=== PATIENT | female | born 1965 | race Caucasian/White ===

== ENCOUNTER → 2016-11-14 | Outpatient (CLI) | payer BC ==
--- NOTE | 2016-11-15 09:36 | MM ---
Reason for exam: screening (asymptomatic). Last mammogram was performed 1 year and 10 months ago. History: Patient is postmenopausal. Family history of breast cancer in mother at age 58. Took hormonal contraceptives for 12 years beginning at age 18. Physical Findings: A clinical breast exam by your physician is recommended on an annual basis and results should be correlated with mammographic findings. MG Screening Mammo w CAD Bilateral CC and MLO view(s) were taken. Prior study comparison: January 14, 2015, bilateral MG screening mammo w CAD. November 10, 2013, bilateral digital screening mammo w/CAD. There are scattered fibroglandular densities. There is no discrete abnormality. No significant changes when compared with prior studies. ASSESSMENT: Negative, BI-RAD 1 RECOMMENDATION: Routine screening mammogram of both breasts in 1 year.
== END | disposition home or self-care (01) ==
LOC: RADMAMWWP 07:51
PROVIDERS: ATTEND Family Medicine
DX: Z12.31 Encounter for screening mammogram for malignant neoplasm of breast (principal)

== ENCOUNTER → 2017-12-27 | Outpatient (CLI) | payer BC ==
--- NOTE | 2017-12-28 11:59 | MM ---
Reason for exam: screening (asymptomatic). Last mammogram was performed 1 year and 1 month ago. History: Patient is postmenopausal. Family history of breast cancer in mother at age 58. Took hormonal contraceptives for 12 years beginning at age 18. Physical Findings: A clinical breast exam by your physician is recommended on an annual basis and results should be correlated with mammographic findings. MG Screening Mammo w CAD Bilateral CC and MLO view(s) were taken. Prior study comparison: November 14, 2016, bilateral MG screening mammo w CAD. January 14, 2015, bilateral MG screening mammo w CAD. There are scattered fibroglandular densities. Finding: There are typically benign calcifications. There is a chronic nodularity in the left breast. No significant changes in finding since November 14, 2016 and January 14, 2015. ASSESSMENT: Benign, BI-RAD 2 RECOMMENDATION: Routine screening mammogram of both breasts in 1 year.
== END | disposition home or self-care (01) ==
LOC: RADMAMWWP 07:38
PROVIDERS: ATTEND Family Medicine
DX: Z12.31 Encounter for screening mammogram for malignant neoplasm of breast (principal)
CPT/HCPCS: 77067

== ENCOUNTER → 2018-10-03 | Outpatient (CLI) | payer BC ==
--- NOTE | 2018-10-03 08:47 | US ---
EXAMINATION TYPE: US abdomen complete DATE OF EXAM: 10/03/2018 COMPARISON: CT 2012 CLINICAL HISTORY: R31.9 Hematuria. Hematuria, pt states left flank pain EXAM MEASUREMENTS: Liver Length: 17.6 cm Gallbladder Wall: 0.2 cm CBD: 0.4 cm Spleen: 9.0 cm Right Kidney: 11.0 x 4.7 x 5.4 cm Left Kidney: 11.8 x 5.5 x 5.5 cm Pancreas: wnl, tail obscured by overlying bowel gas Liver: Upper limits of normal, otherwise appeared wnl Gallbladder: wnl Evidence for sonographic Daugherty's sign: No CBD: wnl Spleen: wnl Right Kidney: wnl, no evidence of hydro Left Kidney: wnl, no evidence of hydro or renal stone Upper IVC: wnl Abd Aorta: wnl No abnormality visualized to account for pt's symptoms The visualized liver is homogenous. The intrahepatic portion of the IVC and visualized abdominal aor ta are within normal limits. There is no evidence of shadowing mobile cholelithiasis. Common bile d uct is unremarkable. The visualized portions of the pancreas are homogenous portions of distal body and tail are obscured by overlying bowel gas on images saved. The spleen is unremarkable. Kidneys a re symmetric and free of hydronephrosis. No renal lesions are seen. IMPRESSION: No distinct renal stones or hydronephrosis is clearly seen. No suspicious acute finding i dentified on images saved.
--- NOTE | 2018-10-03 08:49 | US ---
EXAMINATION TYPE: US pelvic complete DATE OF EXAM: 10/03/2018 COMPARISON: CT 2012 CLINICAL HISTORY: R31.9 Hematuria. Hematuria, pt states hysterectomy in 2010 for prolapsed uterus TECHNIQUE: Transabdominal (TA). Transabdominal sonographic images of the pelvis were acquired. Date of LMP: 2010 1. Uterus: Surgically absent 2. Endometrium: Surgically absent 3. Right Ovary: Obscured by overlying bowel gas 4. Left Ovary: Obscured by overlying bowel gas 5. Bilateral Adnexa: wnl 6. Posterior cul-de-sac: wnl No pelvic abnormality visualized, ovaries obscured by overlying bowel. Bladder images also obtained , bladder appears wnl, bilateral jets visualized. IMPRESSION: Posthysterectomy changes without suspicious adnexal mass.
== END | disposition home or self-care (01) ==
LOC: RADUSWWP 08:03
PROVIDERS: ATTEND Family Medicine
DX: R31.9 Hematuria, unspecified (principal); Z90.710 Acquired absence of both cervix and uterus
CPT/HCPCS: 76700; 76856

== ENCOUNTER → 2018-10-25 | Outpatient (CLI) | payer BC ==
--- NOTE | 2018-10-27 16:05 | CT ---
EXAMINATION TYPE: CT abdomen pelvis wo con DATE OF EXAM: 10/25/2018 COMPARISON: Ultrasound 10/03/2018 HISTORY: 53-year-old female LEFT SIDE abdominal PAIN CT DLP: 770.8 mGycm. Automated exposure control for dose reduction was used. TECHNIQUE: Contiguous axial scanning of the abdomen and pelvis without IV contrast. Coronal and sagit hyacinth reconstructions performed. FINDINGS: Heart normal size without pericardial effusion. Some strandy atelectasis inferior lingula. Lung bases otherwise clear without pleural effusion. Liver enlarged measuring 20.8 cm. Noncontrast appearance of the gallbladder, adrenal glands, kidneys, spleen, and pancreas show no rosenda s abnormal mobility. No nephrolithiasis or hydronephrosis. Prominent ingested debris within the stomach. No dilated small bowel, free fluid, or free air. No mesenteric or retroperitoneal lymphadenopathy. Normal appendix. Mild overall stool burden. No pericolonic inflammatory change. Bladder partially distended. Uterus appears surgically absent. What appear to be the ovaries are visu alized. No abnormal fluid collection in the pelvis. Some mildly prominent external iliac chain lymph nodes measure up to 9 mm and are probably reactive/post inflammatory. Numerous pelvic phlebolith is r edemonstrated. Bones: Mild degenerative spurring at the hips. Facet arthropathy lower lumbar spine. Trace grade 1 an terolisthesis L4-L5. IMPRESSION: 1. No nephrolithiasis or hydronephrosis. No acute inflammatory process identified. 2. Hepatomegaly (20.8 cm).
== END ==
LOC: RADCTMAIN 16:12
PROVIDERS: ATTEND Family Medicine
DX: R16.0 Hepatomegaly, not elsewhere classified (principal)
CPT/HCPCS: 74176

== ENCOUNTER → 2019-01-07 | Outpatient (CLI) | payer BC ==
--- NOTE | 2019-01-08 07:12 | CT ---
EXAMINATION TYPE: CT urogram wo/w con DATE OF EXAM: 01/07/2019 HISTORY: Hematuria. CT DLP: 2962.50mGycm Automated Exposure Control for Dose Reduction was Utilized. CONTRAST: CT scan of the abdomen and pelvis is performed without oral and without and with IV Contrast, patient injected with 100 mL of Isovue 300. Urogram protocol with 3-D reconstructed images created on a [employer] workstation and reviewed. COMPARISON: CT abdomen and pelvis October 25, 2018 FINDINGS: KUB: Noncontrast images show no renal calculi bilaterally. Postcontrast images show symmetric cortico medullary uptake and excretion without concerning solid or cystic renal mass seen in either kidney. T here is slight prominence of the right renal pelvis without significant calyceal dilatation consisten t with extrarenal pelvis. Visualized portion of both ureters show no obstructing mass or calculus. Di stal ureters don't completely opacified bilaterally. There is satisfactory distention of the bladder without intraluminal mass or wall thickening. Scattered pelvic phleboliths are seen bilaterally. LUNG BASES: No significant abnormality is appreciated. LIVER/GB: In the medial segment left hepatic lobe there is 2.6 x 2.2 cm heterogeneous slightly hypode nse lesion on noncontrast images which show heterogeneous hyperenhancement relative to remainder of l iver and isodense appearance on delayed phase images for reference series 5 image 30. Imaging charact eristics are consistent with focal FNH or hepatic adenoma. PANCREAS: No significant abnormality is seen. SPLEEN: No significant abnormality is seen. ADRENALS: No significant abnormality is seen. KIDNEYS: No significant abnormality is seen. BOWEL: No significant abnormality is seen. UTERUS/ADNEXA: Uterus is surgically absent or markedly atrophic. LYMPH NODES: No greater than 1cm abdominal or pelvic lymph nodes are appreciated. OSSEOUS STRUCTURES: Some facet arthropathy the lower lumbar spine is present. OTHER: No significant additional abnormality is seen. IMPRESSION: 1. No significant acute finding is seen to account for patient's clinical symptoms of hematuria. No s uspicious mass or calculi identified. 2. There is 2.6 cm anterior medial segment left hepatic lobe liver lesion could reflect focal FNH or hepatic adenoma. Lesion may be possibly further characterized with liver protocol contrast-enhanced M RI if desired.
== END | disposition home or self-care (01) ==
LOC: RADCTMAIN 16:37
PROVIDERS: ATTEND Urology
DX: K76.9 Liver disease, unspecified (principal); R31.9 Hematuria, unspecified
CPT/HCPCS: 74178; 74400; Q9967

== ENCOUNTER → 2019-01-23 | Outpatient (CLI) | payer BC ==
--- NOTE | 2019-01-24 12:29 | MM ---
Reason for exam: screening (asymptomatic). Last mammogram was performed 1 year and 1 month ago. History: Patient is postmenopausal. Family history of breast cancer in mother at age 58. Took hormonal contraceptives for 12 years beginning at age 18. Physical Findings: A clinical breast exam by your physician is recommended on an annual basis and results should be correlated with mammographic findings. MG 3D Screening Mammo W/Cad Bilateral CC and MLO view(s) were taken. Prior study comparison: December 27, 2017, bilateral MG screening mammo w CAD. November 14, 2016, bilateral MG screening mammo w CAD. There are scattered fibroglandular densities. There is chronic nodularity in the left breast. No significant changes when compared with prior studies. ASSESSMENT: Benign, BI-RAD 2 RECOMMENDATION: Routine screening mammogram of both breasts in 1 year.
== END | disposition home or self-care (01) ==
LOC: RADMAMWWP 16:13
PROVIDERS: ATTEND Family Medicine
DX: Z12.31 Encounter for screening mammogram for malignant neoplasm of breast (principal)
CPT/HCPCS: 77063; 77067